=== PATIENT | male | born 1960 | race Hispanic/Latino ===

== ENCOUNTER 2023-01-24 12:07 | Emergency (ER) | payer OTHER ==
[~2023-01-24] VITALS: Ht 170.2 cm; Wt 104.3 kg
[2023-01-24] MEDS ORDERED: LIDOCAINE HCL MPF 1% 5ML VIAL IM SCH (13:30)
[2023-01-24] MEDS ORDERED: DIPH,PERTUSS(ACELL),TET VAC/PF 0.5 ML VIAL IM ONE (13:30)
[2023-01-24] MEDS ORDERED: LIDOCAINE HCL 1% 20 ML VIAL ONE (14:00)
[2023-01-24 16:26] VITALS: BP 142/85
[2023-01-24] MEDS ORDERED: CEPH500T PO (16:53)
[2023-01-24] MEDS ORDERED: CEFAZOLIN SODIUM 1 GM VIAL IM SCH (17:00)
== END 2023-01-24 17:08 | disposition home or self-care (01) ==
LOC: EDH 12:07
DX: S62.616A Displaced fracture of proximal phalanx of right little finger, initial encounter for closed fracture (principal); E78.00 Pure hypercholesterolemia, unspecified; X58.XXXA Exposure to other specified factors, initial encounter; Y93.55 Activity, bike riding; Y92.89 Other specified places as the place of occurrence of the external cause; Y99.8 Other external cause status
CPT/HCPCS: 99284; 96374; 90715; 73130; 90471; 29125; J0690; J3490